=== PATIENT | female | born 1975 | race African-American/Black ===

== ENCOUNTER 2018-09-05 11:42 | Emergency (ER) | payer MEDICAID ==
[~2018-09-05] VITALS: Ht 170.2 cm; Wt 77.1 kg
[2018-09-05 11:52] VITALS: BP 132/91
[2018-09-05 13:43] LABS: Basophils # (auto) 0 uL; Eosinophils # (auto) 0.1 uL; Hemoglobin 7.4 g/dL (12.2-16.2); Lymphocytes # (auto) 1.3 uL; Mean Corpuscular Hemoglobin 20.4 pg (28.0-32.0); Monocytes # (auto) 0.5 uL; Red Blood Cells 3.64 10^6/uL (4.0-5.20); White Blood Cell 4.8 10^3/uL (4.4-10.8)
[2018-09-05 13:46] LABS: Basophils % (auto) 0.8 % (0.0-2.0); Eosinophils % (auto) 1.8 % (0.0-7.0); Hematocrit 24.8 % (36.0-46.0); Lymphocytes % (auto) 26.8 % (10.0-50.0); Mean Corpuscular Volume 68.2 fL (80.0-100.0); Monocytes % (auto) 9.7 % (0.0-12.0); Neutrophils % (auto) 60.9 % (37.0-80.0); Nucleated Red Blood Cells % 0.1 %; Platelet Count (auto) 404 10^3/uL (140-450); Red Cell Distribution Width 18.8 % (11.8-14.3)
[2018-09-05 13:55] LABS: Partial Thromboplastin Time 28.1 sec (23.78-33.04); Prothrombin Time 10.7 sec (9.27-12.13)
[2018-09-05 14:24] LABS: Alanine Aminotransferase 21 U/L (13-56); Albumin 3.5 g/dL (3.4-5.0); Anion Gap 7 (5-15); Aspartate Aminotransferase 19 U/L (15-37); Blood Urea Nitrogen 8 mg/dL (7-18); Calcium 9.2 mg/dL (8.5-10.1); Carbon Dioxide 25 mmol/L (21-32); Chloride 108 mmol/L (98-107); Glucose 92 mg/dL (74-106); Magnesium 2.2 mg/dL (1.6-2.6); Potassium 3.8 mmol/L (3.5-5.1); Sodium 140 mmol/L (136-145)
[2018-09-05 14:29] LABS: Alkaline Phosphatase 85 U/L (45-117); BUN/Creatinine Ratio 11.3; Bilirubin, Total 0.4 mg/dL (0.2-1.0); GFR African American 115 mL/min; GFR Non-African American 95 mL/min; Total Protein 7.6 g/dL (6.4-8.2)
[2018-09-05] MEDS ORDERED: FAMOTIDINE (10MG/ML) 2ML VL IV ONE (15:15)
== END 2018-09-05 16:43 | disposition left against medical advice (07) ==
LOC: ER 11:42
DX: D64.9 Anemia, unspecified (principal); R10.9 Unspecified abdominal pain; K21.9 Gastro-esophageal reflux disease without esophagitis; I10 Essential (primary) hypertension; F12.90 Cannabis use, unspecified, uncomplicated; Z87.891 Personal history of nicotine dependence; Z88.8 Allergy status to other drugs, medicaments and biological substances
CPT/HCPCS: 36415; 71046; 76705; 80053; 81025; 83690; 83735; 83880; 84443; 84484; 85025; 85610; 85730; 93005

== ENCOUNTER 2018-09-06 12:50 | Emergency (ER) | payer MEDICAID ==
[~2018-09-06] VITALS: Ht 170.2 cm; Wt 77.1 kg
[2018-09-06 13:40] LABS: Eosinophils # (auto) 0.1 uL; Lymphocytes # (auto) 1.3 uL; Monocytes # (auto) 0.4 uL
[2018-09-06 13:43] LABS: Basophils # (auto) 0 uL; Basophils % (auto) 0.9 % (0.0-2.0); Eosinophils % (auto) 2.2 % (0.0-7.0); Hematocrit 26.5 % (36.0-46.0); Hemoglobin 7.9 g/dL (12.2-16.2); Lymphocytes % (auto) 26.8 % (10.0-50.0); Mean Corpuscular Hemoglobin 20.5 pg (28.0-32.0); Mean Corpuscular Hgb Conc. 29.9 g/dL (32.0-36.0); Mean Corpuscular Volume 68.6 fL (80.0-100.0); Monocytes % (auto) 8.3 % (0.0-12.0); Neutrophils % (auto) 61.8 % (37.0-80.0); Nucleated Red Blood Cells % 0.1 %; Platelet Count (auto) 447 10^3/uL (140-450); Red Blood Cells 3.86 10^6/uL (4.0-5.20); Red Cell Distribution Width 19.3 % (11.8-14.3); White Blood Cell 4.9 10^3/uL (4.4-10.8)
[2018-09-06 14:12] LABS: Alanine Aminotransferase 23 U/L (13-56); Albumin 3.4 g/dL (3.4-5.0); Anion Gap 5 (5-15); Aspartate Aminotransferase 18 U/L (15-37); BUN/Creatinine Ratio 10.5; Blood Urea Nitrogen 9 mg/dL (7-18); Calcium 8.4 mg/dL (8.5-10.1); Carbon Dioxide 26 mmol/L (21-32); Chloride 108 mmol/L (98-107); GFR African American 92 mL/min; GFR Non-African American 76 mL/min; Glucose 95 mg/dL (74-106); Potassium 3.1 mmol/L (3.5-5.1); Sodium 139 mmol/L (136-145)
[2018-09-06 14:17] LABS: Alkaline Phosphatase 84 U/L (45-117); Bilirubin, Total 0.3 mg/dL (0.2-1.0); Total Protein 8.1 g/dL (6.4-8.2)
[2018-09-06 20:03] LABS: INR 0.99 (0.9-1.15); Partial Thromboplastin Time 29.2 sec (23.78-33.04); Prothrombin Time 10.6 sec (9.27-12.13)
[2018-09-06] MEDS ORDERED: ASPirin-EC 81 mg tab PO ONE (20:15)
[2018-09-06] MEDS ORDERED: HYDROcodone-ACET 5/325MG TAB PO ONE (20:15)
[2018-09-06] MEDS ORDERED: POTASSIUM CHL 20 Meq TABLET PO ONE (21:45)
[2018-09-06 21:54] VITALS: BP 151/98
== END 2018-09-06 22:25 | disposition home or self-care (01) ==
LOC: ER 12:55
DX: R07.89 Other chest pain (principal); D50.0 Iron deficiency anemia secondary to blood loss (chronic); N92.0 Excessive and frequent menstruation with regular cycle; F41.9 Anxiety disorder, unspecified; K21.9 Gastro-esophageal reflux disease without esophagitis; F12.10 Cannabis abuse, uncomplicated; I10 Essential (primary) hypertension; Z87.891 Personal history of nicotine dependence; Z88.8 Allergy status to other drugs, medicaments and biological substances
CPT/HCPCS: 36415; 71045; 80053; 83735; 83880; 84443; 84484; 84702; 85025; 85379; 85610; 85730; 93005; 94761

== ENCOUNTER 2021-01-19 16:06 | Inpatient (IN) | payer MEDICAID ==
[~2021-01-19] VITALS: Ht 170.2 cm; Wt 81.6 kg
[2021-01-19 18:34] LABS: Eosinophils # (auto) 0.1 10 ^3/uL (0-0.8); Neutrophils # (auto) 3.7 10 ^3/uL (1.6-8.6); Nucleated Red Blood Cells % 0.1 %
[2021-01-19 18:36] LABS: Basophils # (auto) 0 10 ^3/uL (0-0.2); Basophils % (auto) 0.7 % (0.0-2.0); Eosinophils % (auto) 1.2 % (0.0-7.0); Hematocrit 22.7 % (36.0-46.0); Lymphocytes # (auto) 1.7 10 ^3/uL (0.4-5.4); Lymphocytes % (auto) 28.4 % (10.0-50.0); Mean Corpuscular Hemoglobin 19.5 pg (28.0-32.0); Mean Corpuscular Hgb Conc. 29.6 g/dL (32.0-36.0); Mean Corpuscular Volume 65.8 fL (80.0-100.0); Monocytes # (auto) 0.6 10 ^3/uL (0-1.3); Monocytes % (auto) 9.3 % (0.0-12.0); Neutrophils % (auto) 60.4 % (37.0-80.0); Red Blood Cells 3.44 10^6/uL (4.0-5.20); Red Cell Distribution Width 19.5 % (11.8-14.3); White Blood Cell 6.2 10^3/uL (4.4-10.8)
[2021-01-19 18:48] LABS: Albumin 3.1 g/dL (3.4-5.0); Anion Gap 8 (5-15); Blood Urea Nitrogen 12 mg/dL (7-18); Calcium 8.6 mg/dL (8.5-10.1); Carbon Dioxide 22 mmol/L (21-32); Chloride 111 mmol/L (98-107); Glucose 101 mg/dL (74-106); Potassium 3.6 mmol/L (3.5-5.1); Sodium 141 mmol/L (136-145)
[2021-01-19 18:54] LABS: Hemoglobin 6.7 g/dL (12.2-16.2)
[2021-01-19 19:01] LABS: Alanine Aminotransferase 22 U/L (13-56); Alkaline Phosphatase 73 U/L (45-117); Aspartate Aminotransferase 14 U/L (15-37); BUN/Creatinine Ratio 17.1; Bilirubin, Total 0.1 mg/dL (0.2-1.0); GFR African American 115 mL/min; GFR Non-African American 95 mL/min; Total Protein 7.6 g/dL (6.4-8.2)
[2021-01-19] MEDS ORDERED: MORPHINE SULFATE INJECTION 2 MG/ML SYRG IV PRN (20:30)
[2021-01-19] MEDS ORDERED: ONDANSETRON HCL 4 MG/2 ML VIAL IV PRN (20:30)
[2021-01-19] MEDS ORDERED: NITROGLYCERIN 0.4 MG SL TAB SL PRN (20:30)
[2021-01-19 22:09] LABS: Urine Bacteria NONE SEEN /hpf (None Seen); Urine Blood Negative /uL (Negative); Urine Specific Gravity 1.025 (1.001-1.035); Urine WBC 1 /hpf (0 - 5)
[2021-01-20] VITALS (7 sets, daily range): BP systolic 119–140; BP diastolic 71–81
[2021-01-20 08:51] LABS: Basophils # (auto) 0 10 ^3/uL (0-0.2); Lymphocytes # (auto) 1.3 10 ^3/uL (0.4-5.4); Neutrophils # (auto) 2.8 10 ^3/uL (1.6-8.6); White Blood Cell 4.8 10^3/uL (4.4-10.8)
[2021-01-20 08:53] LABS: Eosinophils # (auto) 0 10 ^3/uL (0-0.8); Eosinophils % (auto) 0.9 % (0.0-7.0); Hematocrit 30.6 % (36.0-46.0); Hemoglobin 9.5 g/dL (12.2-16.2); Lymphocytes % (auto) 27.2 % (10.0-50.0); Mean Corpuscular Hemoglobin 22.5 pg (28.0-32.0); Mean Corpuscular Hgb Conc. 31.2 g/dL (32.0-36.0); Mean Corpuscular Volume 72.2 fL (80.0-100.0); Monocytes # (auto) 0.7 10 ^3/uL (0-1.3); Monocytes % (auto) 13.5 % (0.0-12.0); Neutrophils % (auto) 57.4 % (37.0-80.0); Nucleated Red Blood Cells % 0.1 %; Red Blood Cells 4.23 10^6/uL (4.0-5.20); Red Cell Distribution Width 22.7 % (11.8-14.3)
[2021-01-20 09:12] LABS: Albumin 2.9 g/dL (3.4-5.0); Calcium 8.8 mg/dL (8.5-10.1); Potassium 3.8 mmol/L (3.5-5.1)
[2021-01-20 09:15] LABS: BUN/Creatinine Ratio 11.4; Bilirubin, Total 0.3 mg/dL (0.2-1.0); Total Protein 7.1 g/dL (6.4-8.2)
[2021-01-20] MEDS ORDERED: PANTOPRAZOLE 40 MG/10 ML VIAL INJ IV SCH (10:00)
[2021-01-20] MEDS ORDERED: HYDROcodone-ACET 5/325MG TAB PO ONE (11:30)
[2021-01-20] MEDS ORDERED: MORPHINE SULFATE INJECTION 2 MG/ML SYRG IV PRN (11:45)
== END 2021-01-20 13:36 | disposition home or self-care (01) | DRG 532 ==
LOC: ER 16:06 → TELE 20:18
PROVIDERS: ADMIT Hospitalist; ATTEND Hospitalist
PROC: 30233N1 Transfusion of Nonautologous Red Blood Cells into Peripheral Vein, Percutaneous Approach (ICD-10-PCS; principal; 2021-01-20)
DX: N92.0 Excessive and frequent menstruation with regular cycle (principal); D50.0 Iron deficiency anemia secondary to blood loss (chronic); F41.9 Anxiety disorder, unspecified; K21.9 Gastro-esophageal reflux disease without esophagitis; I10 Essential (primary) hypertension; Z20.822 Contact with and (suspected) exposure to COVID-19; Z88.8 Allergy status to other drugs, medicaments and biological substances; Z86.16 Personal history of COVID-19; Z87.891 Personal history of nicotine dependence
CPT/HCPCS: 36415; 36430; 71045; 80053; 81001; 84484; 85025; 86850; 86870; 86900; 86901; 86902; 86922; 87426; 96374; 96375; C9113; G0378; J2405

== ENCOUNTER → 2021-10-14 | Outpatient (CLI) | payer MEDICAID ==
[2021-10-14 11:31] LABS: Leuteinizing Hormone 12.5 IU/L
== END | disposition home or self-care (01) ==
LOC: LAB 10:16
PROVIDERS: ATTEND Obstetrics & Gynecology
DX: Z31.41 Encounter for fertility testing (principal)
CPT/HCPCS: 36415; 82670; 83001; 83002; 84144; 84403; 84443

== ENCOUNTER 2021-12-08 15:53 | Emergency (ER) | payer MEDICAID ==
[~2021-12-08] VITALS: Ht 170.2 cm; Wt 82.0 kg
[2021-12-08 17:06] LABS: Basophils # (auto) 0.1 10 ^3/uL (0-0.2); Basophils % (auto) 0.9 % (0.0-2.0); Eosinophils # (auto) 0.1 10 ^3/uL (0-0.8); Monocytes # (auto) 0.5 10 ^3/uL (0-1.3); White Blood Cell 6.2 10^3/uL (4.4-10.8)
[2021-12-08 17:07] LABS: Eosinophils % (auto) 1.4 % (0.0-7.0); Hematocrit 21.7 % (36.0-46.0); Lymphocytes # (auto) 1.6 10 ^3/uL (0.4-5.4); Lymphocytes % (auto) 26.4 % (10.0-50.0); Mean Corpuscular Hemoglobin 18.6 pg (28.0-32.0); Mean Corpuscular Hgb Conc. 29.5 g/dL (32.0-36.0); Monocytes % (auto) 7.8 % (0.0-12.0); Neutrophils % (auto) 63.5 % (37.0-80.0); Nucleated Red Blood Cells % 0.2 %; Red Blood Cells 3.45 10^6/uL (4.0-5.20); Red Cell Distribution Width 17.9 % (11.8-14.3)
[2021-12-08 17:10] LABS: Hemoglobin 6.4 g/dL (12.2-16.2)
[2021-12-08 17:22] LABS: INR 1.03 (0.9-1.15); Partial Thromboplastin Time 27.7 sec (24.6-33.4)
[2021-12-08 17:24] LABS: Albumin 3.3 g/dL (3.4-5.0); BUN/Creatinine Ratio 14.4; Calcium 8.5 mg/dL (8.5-10.1); Potassium 3.2 mmol/L (3.5-5.1)
[2021-12-08 17:26] LABS: Bilirubin, Total 0.2 mg/dL (0.2-1.0); Total Protein 7.7 g/dL (6.4-8.2)
[2021-12-08 18:44] LABS: Urine Bacteria NONE SEEN /hpf (None Seen); Urine Blood Negative /uL (Negative); Urine Mucus FEW (None Seen); Urine Specific Gravity 1.035 (1.001-1.035); Urine WBC 1 /hpf (0 - 5)
[2021-12-08] MEDS ORDERED: MORPHINE SULFATE 4 MG/ML SYR/VIAL IV ONE (19:45)
[2021-12-08] MEDS ORDERED: ONDANSETRON HCL 4 MG/2 ML VIAL IV ONE (19:45)
[2021-12-08 22:37] VITALS: BP 144/76
[2021-12-08] MEDS ORDERED: HYDROmorphone HCL 2 MG/ML VL/or syr IV ONE (22:45)
[2021-12-08 23:08] VITALS: BP 121/66
[2021-12-09 00:35] VITALS: BP 106/63
[2021-12-09 00:56] VITALS: BP 113/64
[2021-12-09 01:18] VITALS: BP 115/56
[2021-12-09 03:05] VITALS: BP 117/67
[2021-12-09 04:54] LABS: Hematocrit 27.8 % (36.0-46.0); Hemoglobin 8.5 g/dL (12.2-16.2)
[2021-12-09 08:00] VITALS: BP 112/79
[2021-12-09] MEDS ORDERED: FERR1TAB36 PO (08:15)
[2021-12-09] MEDS ORDERED: POTASSIUM EFFERVESENT TAB 25 MEQ PO ONE (08:15)
[2021-12-09] MEDS ORDERED: ASCO500T11 PO (08:15)
[2021-12-09] MEDS ORDERED: CIPR-173 PO (08:15)
[2021-12-11] MEDS ORDERED: HYDR-4902 PO (08:33)
[2021-12-11] MEDS ORDERED: ONDA-144 PO (08:33)
== END 2021-12-09 08:32 | disposition home or self-care (01) ==
LOC: ER 15:53
DX: D50.0 Iron deficiency anemia secondary to blood loss (chronic) (principal); D25.9 Leiomyoma of uterus, unspecified; F41.9 Anxiety disorder, unspecified; M19.90 Unspecified osteoarthritis, unspecified site; K21.9 Gastro-esophageal reflux disease without esophagitis; I10 Essential (primary) hypertension; Z20.822 Contact with and (suspected) exposure to COVID-19; Z87.891 Personal history of nicotine dependence; Z88.8 Allergy status to other drugs, medicaments and biological substances
CPT/HCPCS: 36415; 36430; 80053; 81001; 85014; 85018; 85025; 85610; 85730; 86850; 86870; 86900; 86901; 86902; 87426; 96374; 96375; 99285; J1170; J2270; J2405; P9016; 86922

== ENCOUNTER → 2021-12-11 | Day surgery (SDC) | payer MEDICAID ==
[2021-12-08 12:33] LABS: Eosinophils # (auto) 0.1 10 ^3/uL (0-0.8); Neutrophils # (auto) 2.9 10 ^3/uL (1.6-8.6); Red Cell Distribution Width 18.1 % (11.8-14.3)
[2021-12-08 12:35] LABS: Basophils # (auto) 0.1 10 ^3/uL (0-0.2); Eosinophils % (auto) 1.7 % (0.0-7.0); Hematocrit 22.3 % (36.0-46.0); Lymphocytes # (auto) 1.6 10 ^3/uL (0.4-5.4); Lymphocytes % (auto) 30.8 % (10.0-50.0); Mean Corpuscular Hemoglobin 18.7 pg (28.0-32.0); Mean Corpuscular Hgb Conc. 29.4 g/dL (32.0-36.0); Mean Corpuscular Volume 63.6 fL (80.0-100.0); Monocytes # (auto) 0.5 10 ^3/uL (0-1.3); Monocytes % (auto) 9.3 % (0.0-12.0); Neutrophils % (auto) 57.2 % (37.0-80.0); Nucleated Red Blood Cells % 0.1 %; Red Blood Cells 3.51 10^6/uL (4.0-5.20)
[2021-12-08 12:40] LABS: Urine Bacteria NONE SEEN /hpf (None Seen); Urine Blood Negative /uL (Negative); Urine Mucus FEW (None Seen); Urine Specific Gravity 1.033 (1.001-1.035); Urine WBC <1 /hpf (0 - 5)
[2021-12-08 12:41] LABS: INR 1.01 (0.9-1.15); Partial Thromboplastin Time 29.1 sec (24.6-33.4)
[2021-12-08 12:57] LABS: Potassium 3.3 mmol/L (3.5-5.1)
[2021-12-08 13:04] LABS: Albumin 3.4 g/dL (3.4-5.0); BUN/Creatinine Ratio 15.7; Bilirubin, Total 0.3 mg/dL (0.2-1.0); Total Protein 7.9 g/dL (6.4-8.2)
[2021-12-08 13:08] LABS: Hemoglobin 6.6 g/dL (12.2-16.2)
[~2021-12-11] VITALS: Ht 170.2 cm; Wt 79.4 kg
[~2021-12-11] MED LIST: ASCO500T11 PO; CIPR-173 PO; FERR1TAB36 PO; GLYCOPYRROLATE 0.2 MG/ML 1ML VIAL ONE; HYDR-4902 PO; HYDROCORTISONE SOD SUCC 100 MG/2ML INJ VIAL ONE; HYDROmorphone HCL 2 MG/ML VL/or syr IV PRN; KETOROLAC TROMETH 30 MG/ML 1ML VIAL ONE; LACTATED RINGER'S 1,000 ML IV SCH; LIDOCAINE 2% (LOCAL ANESTH.) PF 5ml SDV ONE; MEPERIDINE HCL (50 MG/ML) 1 ML VIAL ONE; MIDAZOLAM HCL 2MG/2ML 2ml VIAL (1mg/ml) ONE; ONDA-144 PO; ONDANSETRON HCL 4 MG/2 ML VIAL IV PRN; ONDANSETRON HCL 4 MG/2 ML VIAL ONE; PROPOFOL 10 MG/ML 20 ML IV ONE; ceFAZolin 1GM/50ML 100 ML IV ONE; fentaNYL CITRATE 100 MCG/2 ML VL ONE
[2021-12-11 08:50] VITALS: BP 141/80
== END | disposition home or self-care (01) ==
LOC: SUR 06:35
PROVIDERS: ATTEND Obstetrics & Gynecology
DX: N93.9 Abnormal uterine and vaginal bleeding, unspecified (principal); D50.9 Iron deficiency anemia, unspecified; D25.9 Leiomyoma of uterus, unspecified; N92.4 Excessive bleeding in the premenopausal period; F41.9 Anxiety disorder, unspecified; I10 Essential (primary) hypertension; M06.9 Rheumatoid arthritis, unspecified; Z87.891 Personal history of nicotine dependence; Z88.8 Allergy status to other drugs, medicaments and biological substances; Z20.822 Contact with and (suspected) exposure to COVID-19
CPT/HCPCS: 36415; 58558; 80053; 81001; 81025; 84702; 85025; 85610; 85730; 86850; 86870; 86900; 86901; J0690; J1720; J1885; J2001; J2175; J2250; J2405; J2704; J3010; U0003